=== PATIENT | female | born 1980 | race Caucasian/White ===

== ENCOUNTER → 2016-11-06 | Outpatient (CLI) | payer OTHER ==
[~2016-11-06] MED LIST: CLON0.5T PO; LORA-446 SL; ONDA4SOL2 IV; ONDA8TAB16 SL; OXYC500S PO; ROPI2TAB3 PO; SERT100T PO; SUCR1ORA2 PO; ZOLP10TA PO; ZOLP10TA5 PO
[2016-11-06 12:04] LABS: HEMOGLOBIN 16.2 g/dL (11.7-16.4)
[2016-11-06 12:14] LABS: BLOOD UREA NITROGEN 8 mg/dL (7-18)
[2016-11-06 12:40] LABS: ASPARTATE AMINO TRANSFERASE 19 U/L (15-37); TOTAL IRON BINDING CAPACITY 368 mcg/dL (250-450)
== END | disposition home or self-care (01) ==
LOC: LAB 11:32
PROVIDERS: ATTEND Family Medicine
DX: Z13.1 Encounter for screening for diabetes mellitus (principal); Z13.220 Encounter for screening for lipoid disorders; D64.9 Anemia, unspecified
CPT/HCPCS: 36415; 80053; 80061; 82306; 82607; 82728; 82746; 83036; 83540; 83550; 85025